=== PATIENT | male | born 2000 | race Caucasian/White ===

== ENCOUNTER 2023-05-15 19:27 | Emergency (ER) | payer MEDICAID ==
[~2023-05-15] VITALS: Ht 172.7 cm; Wt 70.3 kg
[2023-05-15] MEDS ORDERED: IBUP-1493 PO (21:13)
[2023-05-15] MEDS ORDERED: SILV20CR11 TP (21:13)
[2023-05-15 22:23] LABS: BASOPHILS % (AUTO) 0.8 % (0.0-5.0); EOSINOPHILS % (AUTO) 0.9 % (0.0-8.0); HEMATOCRIT 44.7 % (42-54); LYMPHOCYTES % (AUTO) 19.9 % (21.0-51.0); MEAN CORPUSCULAR HEMOGLOBIN 28.6 pg (27.0-33.0); MEAN CORPUSCULAR HGB CONC 32.4 g/dL (32.0-36.0); MEAN CORPUSCULAR VOLUME 88.2 fL (80-100); MONOCYTES % (AUTO) 7.7 % (3.0-13.0); NEUTROPHILS % (AUTO) 70.3 % (40.0-77.0); PLATELET COUNT (AUTO) 292 K/uL (130-400); RED BLOOD CELL COUNT(AUTO) 5.07 MIL/uL (4.50-6.20); RED CELL DISTRIBUTION WIDTH 13.3 % (11.0-15.5); WHITE BLOOD COUNT (AUTO) 11.7 K/uL (4.8-10.8)
[2023-05-15] MEDS ORDERED: CEFAZOLIN SODIUM 2 GM VIAL IVPB STA (22:23)
[2023-05-15] MEDS ORDERED: CEPH500B PO (22:26)
[2023-05-15 22:28] VITALS: BP 132/60
[2023-05-15] MEDS ORDERED: MORPHINE 4 MG SYG IVP ONE (22:30)
[2023-05-15 22:31] LABS: CREATININE 1.1 mg/dL (0.5-1.5); POTASSIUM 3.5 mmol/L (3.5-5.1)
[2023-05-15 22:35] LABS: TOTAL PROTEIN, SERUM 7.9 g/dL (6.0-8.3)
== END 2023-05-15 22:39 | disposition home or self-care (01) ==
LOC: EDH 19:27
DX: T22.111A Burn of first degree of right forearm, initial encounter (principal); X08.8XXA Exposure to other specified smoke, fire and flames, initial encounter; Y93.89 Activity, other specified; Y92.89 Other specified places as the place of occurrence of the external cause; Y99.8 Other external cause status
CPT/HCPCS: 99284; 96365; 96375; 80053; 85025; 36415; 16000; J2270; J0690